=== PATIENT | female | born 1930 | race African-American/Black ===

== ENCOUNTER → 2016-07-19 | Day surgery (SDC) | payer MEDICARE, OTHER ==
[~2016-07-19] MED LIST: AMARYL2 MG PO; ASPIRIN81 M1 PO; ASPIRIN81 MG PO; B-121000 MC1 PO; BACTRIM DS TABL1 TA2 PO; BAYER CHEWABLE81 MG PO; BUMEX1 MG PO; CENTRUM SILVER PO; COMBIVENT RESPIM4 GM IH; CYANOCOBALAM1000 MCG PO; DOCU SOFT100 M1 PO; GLIMEPIRIDE2 MG PO; HYDROCODON-ACE1 EAC7 PO; HYZAAR 100-25 T1 TAB PO; IRON PO; IRON325 ( 651 PO; K-DUR20 ME1 PO; KEFLEX PO; KEFLEX500 MG PO; LASIX20 MG PO; LEVAQUIN PO; LEVOFLOXACIN500 MG PO; LIPITOR20 MG DOB; LIPITOR20 MG PO; LOPRESSOR100 MG PO; LORTAB 10-5001 EACH PO; LOSARTAN-HCTZ1 EAC1 PO; METOPROLOL TAR100 MG PO; MUCINEX DM ER1 EAC1 PO; MULTI VITAMIN1 EACH PO; NEURONTIN100 MG PO; OXYCODON HCL-AP1 TA2 PO; OXYCODONE HCL15 MG PO; PERCOCET 10/3251 TAB PO; PROCRIT SUBQ; SENNA PO; SENNA8.6 M1 PO; TRAVATAN Z5 ML OU; TRAVATAN2.5 ML OD; TRAVATAN5 ML OU; TYLENOL #3 PO; VITAMIN B-121000 MCG PO
--- NOTE | ~2016-07-19 | OR ---
Unit #: [id number] #: [id number] Patient: RABIA BERRY [id number] [address] [place], [place] [address] [id number] O MR#: [id number] NAME: RABIA BERRY ROOM: Date of Procedure: 07/19/2016 Admission Date: 07/19/2016 Surgeon: Abel Higgins M.D. : 1930 Attending Physician: Abel Higgins M.D. Primary Care Physician: Jose E Rick Jr., M.D. SURGERY CENTER OPERATIVE NOTE PROCEDURE PERFORMED L2 through L5 right-sided therapeutic facet joint injections under x-ray guided needle placement with provider administered conscious sedation. PREOPERATIVE DIAGNOSES 1. Acute lumbar facet arthralgia. 2. 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 INDICATIONS FOR PROCEDURE The patient presents today with longstanding history of chronic lumbar radicular pain as well as chronic lumbar facet arthralgia pain secondary to her underlying degenerative processes. She is generally fairly well managed medically with ongoing continuous self-directed physical therapy and medication when tolerated. The patient does however occasionally experience exacerbations, which to date have broken through her ongoing continuous conservative management and have only responded to interventional pain management procedures. Her usual amount of relief has been 60% to 80% for 6 to 8 weeks, whereupon she would develop a fairly consistent pattern of crescendo return over the course of the next 2 to 4 to 6 weeks eventually requiring intervention as it begins to negatively impact her activities of daily living. She is currently in just that situation today and that has been approximately 14 weeks since her last visit. She presents today with an exacerbation of her facet arthralgia pain, which has failed to respond to her usual ongoing continuous conservative measures and has begun to impact her activities of daily living. She presents today requesting treatment. After discussing risks and benefits of proceeding today with an L2 through L5 facet injections into the periarticular area, the patient agreed this would be the appropriate course of action. DESCRIPTION OF PROCEDURE She was then taken to the operating room, where she was prepped and draped in a sterile manner. Standard monitors were applied. She was sedated with 1 mg of IV Versed and L2-L3, L3-L4, L4-L5, and L5-S1 facet joints were localized with a 25-gauge Quincke spinal needles into the periarticular area. Following this needle placement under x-ray guidance, the patient received an injectate in equal amounts at each of these 4 locations of a total injectate containing 5 mL of 1% lidocaine, 6 mL of 0.25% bupivacaine, and 80 mg of methylprednisolone. She tolerated this procedure well and was discharged home with followup instructions, which include an offer to return to this clinic as early as 09/22/2016 for evaluation of her lumbar disease as well as 11/10/2016 for evaluation of her facet disease. Unit #: [id number] #: [id number] Patient: RABIA BERRY Dictated by... Narciso Coleman/jenny TD: 07/20/2016 01:05 JOB #: [id number] [facility]ENTER OPERATIVE NOTE Page 1 of 1 X Taqueria Higgins MD X PROCEDURE OPERATIVE NOTE
== END | disposition home or self-care (01) ==
LOC: CCSC 08:25
DX: M47.26 Other spondylosis with radiculopathy, lumbar region (principal)
CPT/HCPCS: J1040; J2250

== ENCOUNTER → 2016-09-22 | Day surgery (SDC) | payer MEDICARE ==
--- NOTE | ~2016-09-22 | OR ---
Unit #: [id number] #: [id number] Patient: RABIA BERRY [id number] [address] [place], [place] [address] [id number] O MR#: [id number] NAME: RABIA BERRY ROOM: Date of Procedure: 09/22/2016 Admission Date: 09/22/2016 Surgeon: Abel Higgins M.D. : 1930 Attending Physician: Taqueria Higgins Primary Care Physician: Jose E Rick Jr., M.D. SURGERY CENTER OPERATIVE NOTE PROCEDURE PERFORMED Lumbar epidural steroid injection under x-ray guided needle placement with provider administered conscious sedation. PREOPERATIVE DIAGNOSES 1. Acute lumbar radiculitis. 2. Spinal stenosis, lumbosacral spine. 3. Degenerative joint disease, lumbosacral spine. 4. Degenerative disk disease, lumbosacral spine. INDICATIONS FOR PROCEDURE The patient presents today with longstanding history of chronic lumbar radicular pain as well as chronic lumbar facet arthralgia. This is due to longstanding chronic degenerative disease of both her degenerative disk and her degenerative joints. She has generally been fairly well managed medically with medications and ongoing self-directed physical activity; however, she does occasionally experience exacerbations, which to date have only responded to interventional pain management procedures. Her last epidural steroid injection was approximately 1 year ago for her radicular pain. She has been getting relief from that epidural steroid injection for approximately 10 to 11 months. She is currently experiencing an exacerbation of her radicular pain, which has advanced in a crescendo pattern and has failed to respond and/or broken through her ongoing continuous conservative management. After discussing risks and benefits of proceeding today with lumbar approach epidural steroid injection, the patient agreed this would be the appropriate course of action. DESCRIPTION OF PROCEDURE She was then taken to the operating room, where she was prepped and draped in sterile manner. Standard monitors were applied. She was sedated with 0.5 mg of IV Versed and lumbar epidural space was accessed at the L5-S1 level using loss of resistance technique and x-ray guidance. Needle placement was confirmed with injection of 2 mL of Omnipaque. There was good superior and inferior dye flow at this L5-S1 needle placement. Following successful needle placement which required an x-ray time of 3 seconds, the patient received an injectate containing 4 mL normal saline and 80 mg of methylprednisolone. She tolerated this procedure well. She was discharged home with followup instructions, which include return to this clinic on 11/10/2016 for evaluation of her facet arthralgia/arthrosis as well as return on 12/29/2016 for an evaluation of her radicular pain. Unit #: [id number] #: [id number] Patient: RABIA BERRY Dictated by... Narciso Coleman/jenny TD: 09/22/2016 23:35 JOB #: [id number] [facility]ENTER OPERATIVE NOTE Page 1 of 1 X Taqueria Higgins MD X PROCEDURE OPERATIVE NOTE
== END | disposition home or self-care (01) ==
LOC: CCSC 09-20 14:15
DX: G89.29 Other chronic pain (principal); M51.17 Intervertebral disc disorders with radiculopathy, lumbosacral region; M47.27 Other spondylosis with radiculopathy, lumbosacral region; M48.07 Spinal stenosis, lumbosacral region; I11.0 Hypertensive heart disease with heart failure; I50.9 Heart failure, unspecified; M19.90 Unspecified osteoarthritis, unspecified site; Z87.440 Personal history of urinary (tract) infections; Z98.42 Cataract extraction status, left eye; Z90.710 Acquired absence of both cervix and uterus; Z79.82 Long term (current) use of aspirin; Z79.899 Other long term (current) drug therapy
CPT/HCPCS: J1040; J2250